=== PATIENT | male | born 1965 | race Caucasian/White ===

== ENCOUNTER 2021-11-12 15:14 | Emergency (ER) | payer MEDICAID ==
[~2021-11-12] VITALS: Ht 185.4 cm; Wt 81.8 kg
[2021-11-12 15:46] VITALS: BP 120/81
[2021-11-12] MEDS ORDERED: BEBTELOVIMAB 175 MG/2 ML VIAL IV ONE (16:40)
== END 2021-11-12 18:14 | disposition home or self-care (01) ==
LOC: ER 15:15
DX: U07.1 COVID-19 (principal); R50.9 Fever, unspecified; E11.9 Type 2 diabetes mellitus without complications
CPT/HCPCS: 99283; M0222; Q0222

== ENCOUNTER 2023-01-13 15:28 | Inpatient (IN) | payer BC, MEDICAID ==
[~2023-01-13] VITALS: Ht 188 cm; Wt 71.6 kg
[~2023-01-13 15:28] MED LIST: piperacillin/tazo 4.5gm/100ml 100 ML IV ONE
[2023-01-13 19:20] LABS: BASOPHILS % (AUTO) 0.4 % (0-1); EOSINOPHILS # (AUTO) 0.2 X10'3 (0-0.9); EOSINOPHILS % (AUTO) 3.5 % (0-6); HEMATOCRIT 38.3 % (42.0-52.0); HEMOGLOBIN 13.6 g/dl (14.0-17.9); LYMPHOCYTES # (AUTO) 1.1 X10'3 (1.1-4.8); LYMPHOCYTES % (AUTO) 16.9 % (21-51); MEAN CORPUSCULAR HEMOGLOBIN 33.3 PG (27.0-31.0); MEAN CORPUSCULAR HGB CONC 35.6 g/dL (33.0-36.5); MEAN CORPUSCULAR VOLUME 93.4 FL (78-98); MEAN PLATELET VOLUME 7.6 FL (7.4-10.4); MONOCYTES # (AUTO) 0.5 X10'3 (0-0.9); MONOCYTES % (AUTO) 7.1 % (2-12); NEUTROPHILS # (AUTO) 4.6 X10'3 (1.8-7.7); NEUTROPHILS % (AUTO) 72.1 % (42-75); PLATELET COUNT 260 X10'3 (140-440); RED CELL DISTRIBUTION WIDTH 12.3 % (11.5-14.5); WHITE BLOOD COUNT 6.4 X10'3 (4.5-11.0)
[2023-01-13 19:38] LABS: ALANINE AMINOTRANSFERASE 9 U/L (12-78); ALBUMIN 3.5 G/DL (3.4-5.0); ALBUMIN/GLOBULIN RATIO 0.8 (1.1-1.5); ALKALINE PHOSPHATASE 90 IU/L (46-116); ANION GAP 6 (8-16); ASPARTATE AMINO TRANSFERASE 10 U/L (10-37); BILIRUBIN,TOTAL 0.6 MG/DL (0.1-1.0); BLOOD UREA NITROGEN 16 MG/DL (7-18); BUN/CREATININE RATIO 16.3 (10.0-20.0); C-REACTIVE PROTEIN 12.86 MG/DL (0.0-0.5); CALCIUM 9.7 MG/DL (8.5-10.1); CHLORIDE 101 MMOL/L (99-107); CREATININE 0.98 MG/DL (0.60-1.10); GLUCOSE 235 MG/DL (70-104); POTASSIUM 4.2 MMOL/L (3.5-5.1); SODIUM 139 MMOL/L (135-145); TOTAL CARBON DIOXIDE 31.8 MMOL/L (24-32); eCRCL 82 ML/MIN; eGFR 78 ML/MIN
[2023-01-13] MEDS ORDERED: vancomycin/NS 1 GM ADD-VANTAGE 250 ML IV SCH (22:45)
[2023-01-13] MEDS ORDERED: vancomycin/NS 1 GM ADD-VANTAGE 250 ML IV ONE (22:49)
[2023-01-13] MEDS ORDERED: cefepime 2g/NS 100ml ADVANTAGE 100 ML IV ONE (23:00)
[2023-01-13] MEDS ORDERED: ondansetron/PF 4mg/2ml inj IV ONE (23:00)
[2023-01-13] MEDS ORDERED: normal saline 1000ml 1,000 ML IV ONE (23:00)
[2023-01-13] MEDS ORDERED: morphine 4 MG/ML inj SYRINge IV ONE (23:00)
[2023-01-13] MEDS ORDERED: glucagon, human recombinant 1mg kit SUBCUT PRN (23:30)
[2023-01-13] MEDS ORDERED: potassium Cl 40MEQ/1/2NS 520ml 520 ML IV PRN (23:30)
[2023-01-13] MEDS ORDERED: ondansetron/PF 4mg/2ml inj IV PRN (23:30)
[2023-01-13] MEDS ORDERED: DEXTROSE 15 GM of carb/4 tabs (each vial/BOTTLE has 4 tablets) PO PRN ×2 (23:30)
[2023-01-13] MEDS ORDERED: potassium Cl 20 mEq SR tablet PO PRN ×2 (23:30)
[2023-01-13] MEDS ORDERED: HYDROmorphone inj. 0.5 MG/0.5 ML DISP.SYRIN IV PRN (23:30)
[2023-01-13] MEDS ORDERED: dextrose 50%-water 50ml dispensing syringe IV PRN ×2 (23:30)
[2023-01-13] MEDS ORDERED: MESSAGE TO PHARMACY PO ONE (23:30)
[2023-01-13] MEDS ORDERED: HYDROmorphone/PF 0.2 MG/ML SYRINGE IV PRN (23:30)
[2023-01-13] MEDS ORDERED: mag hydrox/Alum hydrox/simeth 30ml oral suspension PO PRN (23:30)
[2023-01-13] MEDS ORDERED: magnesium 4gm in 100ml NS 100 ML IV PRN (23:30)
[2023-01-13] MEDS ORDERED: VANCOMYCIN 750MG IV in NS 250 ML IV ONE (23:55)
[2023-01-14] MEDS ORDERED: cefepime 2g/NS 100ml ADVANTAGE 100 ML IV SCH
[2023-01-14] MEDS: normal saline 1000ml 1,000 ML IV SCH ×3 (00:20→19:30)
[2023-01-14] MEDS ORDERED: LORazepam 2 mg/ml vial IV PRN (00:40)
[2023-01-14] MEDS ORDERED: haloperidol lactate 5mg/ml inj IM PRN (00:40)
[2023-01-14] MEDS ORDERED: haloperidol 5mg tablet PO PRN (00:40)
[2023-01-14] MEDS ORDERED: dextrose 50%-water 50ml dispensing syringe IV PRN (00:40)
[2023-01-14 02:42] LABS: BASOPHILS % (AUTO) 0.2 % (0-1); EOSINOPHILS # (AUTO) 0.2 X10'3 (0-0.9); EOSINOPHILS % (AUTO) 2.7 % (0-6); HEMATOCRIT 34.3 % (42.0-52.0); LYMPHOCYTES # (AUTO) 1.2 X10'3 (1.1-4.8); LYMPHOCYTES % (AUTO) 18.4 % (21-51); MEAN CORPUSCULAR HEMOGLOBIN 32.6 PG (27.0-31.0); MEAN CORPUSCULAR HGB CONC 34.9 g/dL (33.0-36.5); MEAN CORPUSCULAR VOLUME 93.5 FL (78-98); MEAN PLATELET VOLUME 7.1 FL (7.4-10.4); MONOCYTES # (AUTO) 0.5 X10'3 (0-0.9); MONOCYTES % (AUTO) 7.9 % (2-12); NEUTROPHILS # (AUTO) 4.5 X10'3 (1.8-7.7); NEUTROPHILS % (AUTO) 70.8 % (42-75); PLATELET COUNT 235 X10'3 (140-440); RED BLOOD COUNT 3.67 X10'6 (4.70-6.10); RED CELL DISTRIBUTION WIDTH 11.9 % (11.5-14.5); WHITE BLOOD COUNT 6.4 X10'3 (4.5-11.0)
[2023-01-14 03:12] LABS: BILIRUBIN,TOTAL 0.5 MG/DL (0.1-1.0); BLOOD UREA NITROGEN 15 MG/DL (7-18); BUN/CREATININE RATIO 15.6 (10.0-20.0); CALCIUM 8.3 MG/DL (8.5-10.1); CREATININE 0.96 MG/DL (0.60-1.10); GLUCOSE 249 MG/DL (70-104); MAGNESIUM 1.7 MG/DL (1.5-2.4); POTASSIUM 4.1 MMOL/L (3.5-5.1); SODIUM 137 MMOL/L (135-145); TOTAL CARBON DIOXIDE 30.8 MMOL/L (24-32); eCRCL 84 ML/MIN; eGFR 80 ML/MIN
[2023-01-14 03:13] LABS: ALANINE AMINOTRANSFERASE 14 U/L (12-78); ALBUMIN 2.8 G/DL (3.4-5.0); ALBUMIN/GLOBULIN RATIO 0.7 (1.1-1.5); ALKALINE PHOSPHATASE 70 IU/L (46-116); ASPARTATE AMINO TRANSFERASE 8 U/L (10-37); TOTAL PROTEIN 6.6 G/DL (6.4-8.2)
[2023-01-14] MEDS ORDERED: PRAV40TA3 PO (03:39)
[2023-01-14] MEDS ORDERED: ZOLP10TA PO (03:39)
[2023-01-14] MEDS ORDERED: LOSA100T58 PO (03:39)
[2023-01-14] MEDS ORDERED: GLIM4TAB7 PO (03:39)
[2023-01-14] MEDS ORDERED: THYR120T2 PO (03:39)
[2023-01-14] MEDS: cefepime 2g/NS 100ml ADVANTAGE 100 ML IV SCH ×3 (04:33→20:30)
[2023-01-14 05:10] LABS: HEMOGLOBIN A1C 10.7 % (4.5-6.2)
[2023-01-14 06:32] LABS: ANION GAP 3 (8-16); CHLORIDE 103 MMOL/L (99-107)
[2023-01-14] MEDS: K and/or MAG REPLACEMENT MC SCH ×2 (08:00→20:00)
[2023-01-14] MEDS: thiamine 100mg tablet PO SCH ×3 (08:53→21:51)
[2023-01-14] MEDS: thyroid, pork 30mg tablet PO SCH (08:53)
[2023-01-14] MEDS: docusate sod 100mg capsule PO SCH ×2 (08:54→20:00)
[2023-01-14 09:00] VITALS: RESP 16
[2023-01-14] MEDS: losartan 50mg tablet PO SCH (09:02)
[2023-01-14 10:00] VITALS: BP 154/95; PULSE 74; RESP 15; TEMP 98.6; O2SAT 100
[2023-01-14] MEDS: insulin Lispro (HumaLOG) vial - multi-dose SQ SCH ×3 (10:30→19:01)
[2023-01-14] MEDS: vancomycin/NS 1 GM ADD-VANTAGE 250 ML IV SCH ×2 (10:54→21:49)
[2023-01-14] MEDS ORDERED: GADOTERATE MEGLUMINE 7.5 MMOL/15 ML VIAL IV ONE (12:35)
[2023-01-14 18:00] VITALS: BP 124/76; PULSE 74; RESP 15; TEMP 98.8; O2SAT 99
--- NOTE | 2023-01-14 18:43 | NUR ---
Problems reprioritized. Patient report given, questions answered & plan of care reviewed with KRYSTA MCPHERSON.
--- NOTE | 2023-01-14 18:45 | NUR ---
Patient in room [facility]TH[facility] 4007. I have received report from ALEJANDRA MCPHERSON and had the opportunity to ask questions and assume patient care.
[2023-01-14] MEDS: enoxaparin 40mg/0.4ml syringe SQ SCH (20:00)
[2023-01-14] MEDS: acetaminophen 325mg tablet PO PRN (21:50)
[2023-01-14] MEDS: pravastatin 40mg tablet PO SCH (21:51)
[2023-01-14] MEDS: zolpidem 5mg tablet PO SCH (21:51)
[2023-01-14] MEDS: insulin glargine (Lantus) pen - multi-dose SQ SCH (21:57)
[2023-01-14 22:00] VITALS: BP 121/73; PULSE 78; RESP 16; TEMP 98.2; O2SAT 97
--- NOTE | 2023-01-14 22:24 | NUR ---
all medications scanned and verified at bedside. computer and did not save scan of medications.
[2023-01-15] MEDS: normal saline 1000ml 1,000 ML IV SCH ×3 (04:00→14:22)
[2023-01-15] MEDS: cefepime 2g/NS 100ml ADVANTAGE 100 ML IV SCH ×3 (04:14→21:14)
[2023-01-15 06:00] VITALS: BP 141/87; PULSE 78; RESP 16; TEMP 97.8; O2SAT 98
[2023-01-15 06:11] LABS: BASOPHILS % (AUTO) 0.3 % (0-1); EOSINOPHILS # (AUTO) 0.1 X10'3 (0-0.9); EOSINOPHILS % (AUTO) 2.6 % (0-6); HEMATOCRIT 34.6 % (42.0-52.0); HEMOGLOBIN 12.3 g/dl (14.0-17.9); LYMPHOCYTES # (AUTO) 1.2 X10'3 (1.1-4.8); LYMPHOCYTES % (AUTO) 22.5 % (21-51); MEAN CORPUSCULAR HEMOGLOBIN 33.2 PG (27.0-31.0); MEAN CORPUSCULAR HGB CONC 35.5 g/dL (33.0-36.5); MEAN CORPUSCULAR VOLUME 93.8 FL (78-98); MEAN PLATELET VOLUME 7.2 FL (7.4-10.4); MONOCYTES # (AUTO) 0.5 X10'3 (0-0.9); MONOCYTES % (AUTO) 8.3 % (2-12); NEUTROPHILS # (AUTO) 3.6 X10'3 (1.8-7.7); NEUTROPHILS % (AUTO) 66.3 % (42-75); PLATELET COUNT 215 X10'3 (140-440); RED BLOOD COUNT 3.69 X10'6 (4.70-6.10); RED CELL DISTRIBUTION WIDTH 12.2 % (11.5-14.5); WHITE BLOOD COUNT 5.5 X10'3 (4.5-11.0)
[2023-01-15 06:20] LABS: ALANINE AMINOTRANSFERASE 7 U/L (12-78); ALBUMIN 2.5 G/DL (3.4-5.0); ALBUMIN/GLOBULIN RATIO 0.7 (1.1-1.5); ALKALINE PHOSPHATASE 64 IU/L (46-116); ANION GAP 7 (8-16); ASPARTATE AMINO TRANSFERASE 6 U/L (10-37); BILIRUBIN,TOTAL 0.5 MG/DL (0.1-1.0); BLOOD UREA NITROGEN 10 MG/DL (7-18); BUN/CREATININE RATIO 10.8 (10.0-20.0); CALCIUM 8.8 MG/DL (8.5-10.1); CHLORIDE 107 MMOL/L (99-107); CREATININE 0.93 MG/DL (0.60-1.10); GLUCOSE 148 MG/DL (70-104); MAGNESIUM 1.7 MG/DL (1.5-2.4); POTASSIUM 3.7 MMOL/L (3.5-5.1); SODIUM 142 MMOL/L (135-145); TOTAL CARBON DIOXIDE 28.2 MMOL/L (24-32); TOTAL PROTEIN 6.3 G/DL (6.4-8.2); eCRCL 87 ML/MIN; eGFR 83 ML/MIN
--- NOTE | 2023-01-15 06:30 | NUR ---
Patient in room [facility]TH[facility] 4007. I have received report from Nancy Andrea and had the opportunity to ask questions and assume patient care.
[2023-01-15] MEDS: thyroid, pork 30mg tablet PO SCH (07:23)
[2023-01-15 07:32] VITALS: RESP 18
[2023-01-15] MEDS: K and/or MAG REPLACEMENT MC SCH ×2 (08:00→19:33)
[2023-01-15] MEDS ORDERED: VANCOMYCIN LEVEL IV ONE ×3 (09:30→21:30)
[2023-01-15 10:00] VITALS: BP 164/96; PULSE 72; RESP 16; TEMP 98.3; O2SAT 98
[2023-01-15] MEDS: insulin Lispro (HumaLOG) vial - multi-dose SQ SCH ×3 (10:25→18:55)
[2023-01-15] MEDS: vancomycin/NS 1 GM ADD-VANTAGE 250 ML IV SCH ×2 (10:26→22:14)
[2023-01-15] MEDS: thiamine 100mg tablet PO SCH ×3 (10:26→21:12)
[2023-01-15] MEDS: losartan 50mg tablet PO SCH (10:28)
[2023-01-15] MEDS: docusate sod 100mg capsule PO SCH ×2 (10:28→21:12)
--- NOTE | 2023-01-15 13:19 | NUR ---
DM Consult: Pt admit DX R 5th toe wound abscess and osteomyelitis possibly to require debridement WOC pending, T2DM A1C 10.7% doesn't check Glu at home, and chronic etoh per EMR. Pt PO ~88% first 3 carb controlled/heart healthy diet meals meeting ~90% kcal and ~98% protein estimated needs. Pt seen by RD at bedside for written/verbal DM and verbal high protein diet eds w/ RD contact information provided. Pt reports unsure which food is safe to eat on meals and in general w/ DM plus does not have working glucometer; RD notified CM regarding glucometer and thoroughly educated pt on DM diet guidelines. Pt reports is hungry after meals; double protein BIDBD added to meals-dietary notified. Receiving routine thiamine for etoh hx. [facility] 01/14. Will continue to follow. Rec: 1. continue carb controlled/heart healthy diet per MD; double protein BIDBD for satiety/wound healing 2. routine thiamine for etoh hx per MD 3. routine bowel care 4. weekly wt Addendum: 01/15/23 at [address] Amended: Links added.
[2023-01-15 18:00] VITALS: BP 141/87; PULSE 78; RESP 16; TEMP 97.8; O2SAT 98
--- NOTE | 2023-01-15 18:25 | NUR ---
Report to Nancy Andrea RN
[2023-01-15] MEDS: zolpidem 5mg tablet PO SCH (21:12)
[2023-01-15] MEDS: pravastatin 40mg tablet PO SCH (21:12)
[2023-01-15] MEDS: enoxaparin 40mg/0.4ml syringe SQ SCH (21:13)
[2023-01-15] MEDS: insulin glargine (Lantus) pen - multi-dose SQ SCH (21:22)
[2023-01-16] MEDS ORDERED: LORazepam 2 mg/ml vial IV PRN (00:40)
[2023-01-16] MEDS ORDERED: LORazepam 1 MG tablet PO PRN (00:40)
[2023-01-16] MEDS: normal saline 1000ml 1,000 ML IV SCH ×3 (02:30→19:40)
[2023-01-16] MEDS: acetaminophen 325mg tablet PO PRN ×2 (02:32→19:41)
[2023-01-16] MEDS: cefepime 2g/NS 100ml ADVANTAGE 100 ML IV SCH ×3 (04:10→19:41)
[2023-01-16 06:00] VITALS: BP 143/89; PULSE 65; RESP 16; TEMP 98.2; O2SAT 96
[2023-01-16 06:11] LABS: BASOPHILS % (AUTO) 0.5 % (0-1); EOSINOPHILS # (AUTO) 0.2 X10'3 (0-0.9); EOSINOPHILS % (AUTO) 2.8 % (0-6); HEMATOCRIT 34.1 % (42.0-52.0); LYMPHOCYTES # (AUTO) 1.1 X10'3 (1.1-4.8); LYMPHOCYTES % (AUTO) 19.6 % (21-51); MEAN CORPUSCULAR HEMOGLOBIN 32.5 PG (27.0-31.0); MEAN CORPUSCULAR HGB CONC 35.2 g/dL (33.0-36.5); MEAN CORPUSCULAR VOLUME 92.5 FL (78-98); MONOCYTES # (AUTO) 0.4 X10'3 (0-0.9); MONOCYTES % (AUTO) 7.3 % (2-12); NEUTROPHILS # (AUTO) 3.9 X10'3 (1.8-7.7); NEUTROPHILS % (AUTO) 69.8 % (42-75); PLATELET COUNT 224 X10'3 (140-440); RED BLOOD COUNT 3.69 X10'6 (4.70-6.10); RED CELL DISTRIBUTION WIDTH 12.1 % (11.5-14.5); WHITE BLOOD COUNT 5.6 X10'3 (4.5-11.0)
--- NOTE | 2023-01-16 06:15 | NUR ---
Problems reprioritized. Patient report given, questions answered & plan of care reviewed with VIDA Duarte.
[2023-01-16 06:58] LABS: ALANINE AMINOTRANSFERASE 13 U/L (12-78); ALBUMIN 2.5 G/DL (3.4-5.0); ALBUMIN/GLOBULIN RATIO 0.7 (1.1-1.5); ALKALINE PHOSPHATASE 61 IU/L (46-116); ANION GAP 4 (8-16); ASPARTATE AMINO TRANSFERASE 10 U/L (10-37); BILIRUBIN,TOTAL 0.5 MG/DL (0.1-1.0); BLOOD UREA NITROGEN 12 MG/DL (7-18); CHLORIDE 107 MMOL/L (99-107); GLUCOSE 157 MG/DL (70-104); MAGNESIUM 1.7 MG/DL (1.5-2.4); SODIUM 141 MMOL/L (135-145); THYROID STIMULATING HORMONE 5.65 ulU/ml (0.34-4.50); TOTAL PROTEIN 6.2 G/DL (6.4-8.2); eCRCL 81 ML/MIN; eGFR 76 ML/MIN
[2023-01-16 07:35] VITALS: RESP 18
[2023-01-16] MEDS: K and/or MAG REPLACEMENT MC SCH ×2 (08:00→20:00)
[2023-01-16] MEDS: thyroid, pork 30mg tablet PO SCH (09:55)
[2023-01-16] MEDS: docusate sod 100mg capsule PO SCH ×2 (09:56→19:41)
[2023-01-16] MEDS: thiamine 100mg tablet PO SCH ×3 (09:56→21:41)
[2023-01-16] MEDS: losartan 50mg tablet PO SCH (09:58)
[2023-01-16 10:00] VITALS: BP 133/82; PULSE 70; RESP 16; TEMP 98.8; O2SAT 96
[2023-01-16] MEDS: insulin Lispro (HumaLOG) vial - multi-dose SQ SCH ×3 (10:09→22:02)
[2023-01-16] MEDS: vancomycin/NS 1 GM ADD-VANTAGE 250 ML IV SCH (11:48)
[2023-01-16] MEDS: metroNIDAZOLE 500mg tablet PO SCH ×2 (14:53→21:41)
--- NOTE | 2023-01-16 16:27 | NUR ---
PRESSURE ULCER EDUCATION: DEFINITION: A pressure ulcer is an area of skin that breaks down when you stay in one position too long. The constant pressure against the skin reduces the blood flow to that area and the affected tissue dies. CAUSES: "Being bedridden or in a wheelchair "Fragile skin "Having a chronic condition, such as diabetes or vascular disease "Inability to move certain parts of your body without assistance "Older age "Incontinence of urine or stool SYMPTOMS: "A reddened area that DOES NOT turn white when pressed on - this can be the beginning of a pressure ulcer "A blister, deep sore or a crater - these can be advanced pressure ulcers FIRST AID: "Relieve the pressure on this area "Keep the area clean and dry "Call your primary doctor if you see any of the above symptoms "DO NOT massage the area "DO NOT use a donut shaped or ring shaped pillow- these actually interfere with the blood flow and cause complications PREVENTION: "Check for pressure ulcers everyday "Change position at least every two hours to relieve pressure "Use items that help relieve pressure- pillows, sheepskin, foam padding, and powders. "Keep skin clean and dry "Eat healthy well balanced meals "Exercise daily IF YOU SEE ANY OF THESE SYMPTOMS WHILE IN THE HOSPITAL - TELL YOUR NURSE IMMEDIATELY. IF YOU SEE ANY OF THESE SYMPTOMS WHILE AT HOME OR HAVE ANY QUESTIONS OR CONCERNS ABOUT PRESSURE ULCERS - CALL YOUR PRIMARY DOCTOR IMMEDIATELY. Addendum: 01/16/23 at 1628 by Sugar Ayon RN Amended: Links added.
[2023-01-16 18:00] VITALS: BP 142/88; PULSE 85; RESP 14; TEMP 98.8; O2SAT 98
--- NOTE | 2023-01-16 18:25 | NUR ---
Patient in room [facility]TH[facility] 4007. I have received report from VIDA Duarte and had the opportunity to ask questions and assume patient care.
--- NOTE | 2023-01-16 18:26 | NUR ---
Report to Eugenie MCPHERSON
[2023-01-16] MEDS: enoxaparin 40mg/0.4ml syringe SQ SCH (19:42)
[2023-01-16 20:00] VITALS: RESP 14; O2SAT 98
[2023-01-16] MEDS: pravastatin 40mg tablet PO SCH (21:41)
[2023-01-16] MEDS: zolpidem 5mg tablet PO SCH (21:41)
[2023-01-16 22:00] VITALS: BP 134/67; PULSE 60; RESP 16; TEMP 98; O2SAT 98
[2023-01-16] MEDS: insulin glargine (Lantus) pen - multi-dose SQ SCH (22:00)
[2023-01-16] MEDS ORDERED: VANCOmycin 1250MG/NS 250ml Bag 250 ML IV SCH (22:00)
[2023-01-17] MEDS: cefepime 2g/NS 100ml ADVANTAGE 100 ML IV SCH (04:27)
[2023-01-17 06:00] VITALS: BP 147/91; PULSE 63; RESP 18; TEMP 97.9; O2SAT 96
--- NOTE | 2023-01-17 06:33 | NUR ---
Problems reprioritized. Patient report given, questions answered & plan of care reviewed with VIDA Duarte.
[2023-01-17 07:22] LABS: BASOPHILS % (AUTO) 0.9 % (0-1); EOSINOPHILS # (AUTO) 0.1 X10'3 (0-0.9); EOSINOPHILS % (AUTO) 2.4 % (0-6); HEMATOCRIT 32.5 % (42.0-52.0); HEMOGLOBIN 11.7 g/dl (14.0-17.9); LYMPHOCYTES # (AUTO) 0.9 X10'3 (1.1-4.8); LYMPHOCYTES % (AUTO) 17.3 % (21-51); MEAN CORPUSCULAR HEMOGLOBIN 33.1 PG (27.0-31.0); MEAN CORPUSCULAR HGB CONC 35.9 g/dL (33.0-36.5); MEAN CORPUSCULAR VOLUME 92.3 FL (78-98); MEAN PLATELET VOLUME 7.1 FL (7.4-10.4); MONOCYTES # (AUTO) 0.3 X10'3 (0-0.9); MONOCYTES % (AUTO) 6.4 % (2-12); NEUTROPHILS # (AUTO) 3.7 X10'3 (1.8-7.7); PLATELET COUNT 213 X10'3 (140-440); RED BLOOD COUNT 3.52 X10'6 (4.70-6.10); WHITE BLOOD COUNT 5.1 X10'3 (4.5-11.0)
[2023-01-17 07:26] LABS: ALANINE AMINOTRANSFERASE 11 U/L (12-78); ALBUMIN 2.6 G/DL (3.4-5.0); ALBUMIN/GLOBULIN RATIO 0.7 (1.1-1.5); ALKALINE PHOSPHATASE 60 IU/L (46-116); ANION GAP 5 (8-16); ASPARTATE AMINO TRANSFERASE 13 U/L (10-37); BILIRUBIN,TOTAL 0.5 MG/DL (0.1-1.0); BLOOD UREA NITROGEN 10 MG/DL (7-18); BUN/CREATININE RATIO 10.3 (10.0-20.0); CALCIUM 8.8 MG/DL (8.5-10.1); CHLORIDE 107 MMOL/L (99-107); CREATININE 0.97 MG/DL (0.60-1.10); GLUCOSE 202 MG/DL (70-104); MAGNESIUM 1.8 MG/DL (1.5-2.4); POTASSIUM 3.9 MMOL/L (3.5-5.1); SODIUM 141 MMOL/L (135-145); TOTAL CARBON DIOXIDE 29.1 MMOL/L (24-32); TOTAL PROTEIN 6.3 G/DL (6.4-8.2); eCRCL 83 ML/MIN; eGFR 79 ML/MIN
[2023-01-17] MEDS: normal saline 1000ml 1,000 ML IV SCH (07:30)
[2023-01-17] MEDS ORDERED: CefTRIAXone 2gm/D5W 50ml BAG 50 ML IV SCH (08:00)
[2023-01-17] MEDS: K and/or MAG REPLACEMENT MC SCH (08:00)
[2023-01-17 08:40] VITALS: RESP 18
[2023-01-17] MEDS: thiamine 100mg tablet PO SCH (08:42)
[2023-01-17] MEDS: thyroid, pork 30mg tablet PO SCH (08:42)
[2023-01-17] MEDS: docusate sod 100mg capsule PO SCH (08:42)
[2023-01-17] MEDS: metroNIDAZOLE 500mg tablet PO SCH ×2 (08:43→14:13)
[2023-01-17] MEDS: losartan 50mg tablet PO SCH (08:43)
[2023-01-17] MEDS: insulin Lispro (HumaLOG) vial - multi-dose SQ SCH ×2 (08:56→14:12)
[2023-01-17 10:00] VITALS: BP 160/96; PULSE 63; RESP 16; TEMP 97.6; O2SAT 96
[2023-01-17] MEDS ORDERED: LANTUS SQ ×2 (13:28→14:00)
[2023-01-17] MEDS ORDERED: METR-159 PO ×2 (13:28→14:19)
[2023-01-17] MEDS ORDERED: AMA1T PO ×2 (13:28→14:19)
[2023-01-17] MEDS ORDERED: LINA5TAB4 PO ×2 (13:28→14:19)
[2023-01-17] MEDS ORDERED: METF-436 PO ×2 (13:28→14:19)
[2023-01-17] MEDS ORDERED: SYRI-641 SUBCUT ×2 (13:49→14:19)
--- NOTE | 2023-01-17 15:13 | NUR ---
F/u 01/17: Per [facility] note, pt w/ DM foot ulcer R 5th toe though no staging noted. Will monitor for further nutrition intervention needs this admit. Addendum: 01/17/23 at [address] Amended: Links added.
[2023-01-18] MEDS ORDERED: LORazepam 2 mg/ml vial IV PRN (00:40)
[2023-01-18] MEDS ORDERED: LORazepam 1 MG tablet PO PRN (00:40)
[2023-01-18] MEDS ORDERED: folic acid 1mg tablet PO SCH (08:00)
[2023-01-18] MEDS ORDERED: VANCOMYCIN LEVEL IV ONE (09:30)
== END 2023-01-17 17:17 | disposition home health service (06) | DRG 603 ==
LOC: ER 15:29 → ED HOLD 23:36 → EDBEDREQ 01-14 05:00 → ORTHO 4S 01-14 08:28
PROVIDERS: ADMIT Family Medicine; ATTEND Internal Medicine
DX: L03.115 Cellulitis of right lower limb (principal); L97.516 Non-pressure chronic ulcer of other part of right foot with bone involvement without evidence of necrosis; M86.8X7 Other osteomyelitis, ankle and foot; L02.611 Cutaneous abscess of right foot; E11.69 Type 2 diabetes mellitus with other specified complication; E78.00 Pure hypercholesterolemia, unspecified; E11.42 Type 2 diabetes mellitus with diabetic polyneuropathy; I10 Essential (primary) hypertension; E11.621 Type 2 diabetes mellitus with foot ulcer; F10.90 Alcohol use, unspecified, uncomplicated; S91.301A Unspecified open wound, right foot, initial encounter; X58.XXXA Exposure to other specified factors, initial encounter; Z91.148 Patient's other noncompliance with medication regimen for other reason; Y93.89 Activity, other specified; Y92.89 Other specified places as the place of occurrence of the external cause; Y99.8 Other external cause status; Z83.3 Family history of diabetes mellitus
CPT/HCPCS: 36415; 36569; 73700; 73720; 76942; 80053; 82948; 83036; 83605; 83735; 84145; 84443; 85025; 86140; 87040; 87070; 87077; 87081; 87186; 97161; 97530; 99285; A6222; A6449; A9575; C1751; G0378; J0692; J0696; J1650; J1815; J2270; J2405; J3370; J3490; J7030; J7050